=== PATIENT | female | born 1995 | race Two or more races ===

== ENCOUNTER 2017-03-23 14:27 | Emergency (ER) | payer SELFPAY ==
[2017-03-23 14:35] VITALS: BP 123/75
--- NOTE | 2017-03-23 15:28 | ER Document Report ---
HPI - HPI Patient complains to provider of: Foreign body in vagina Pain Level: Denies Context: Patient is a 21-year-old female presents emergency department with concerns that she has a tampon stuck in her vagina. Patient states that she believes she placed one at 7 AM this morning and has been able to get out all day. She states that she cannot feel it when she tries to find the string. Denies any pain, foreign body sensation, discharge, fever - DERM Skin Color: Normal Past Medical History - Social History Smoking Status: Unknown if Ever Smoked Family History: Reviewed & Not Pertinent Patient has suicidal ideation: No Patient has homicidal ideation: No Renal/ Medical History: Denies: Hx Peritoneal Dialysis Vertical Provider Document - CONSTITUTIONAL Agree With Documented VS: Yes Exam Limitations: No Limitations General Appearance: WD/WN, No Apparent Distress - INFECTION CONTROL TRAVEL OUTSIDE OF THE [place] IN LAST 30 DAYS: No - RESPIRATORY O2 Sat by Pulse Oximetry: 99 - GI/ABDOMEN Gastrointestinal: Abdomen Soft, Abdomen Non-Tender - REPRODUCTIVE Notes: FEMALE : Normal external exam. No evidence of lesions, lacerations, bruising or vesicles. Speculum exam normal cervix closed with minimal blood. No evidence of vaginal discharge with odor. No evidence of lesions. No vaginal bleeding. Bimanual exam normal no cervical motion tenderness. No adnexal mass or adnexal tenderness. No evidence of foreign body - NEURO Level of Consciousness: Awake, Alert, Appropriate Motor/Sensory: No Motor Deficit, No Sensory Deficit Course - Re-evaluation Re-evalutation: 03/23/17 17:40 Patient a 21-year-old female who is hemodynamic stable, no acute distress afebrile. No evidence of foreign body noted on physical exam. Patient stable for discharge home - Vital Signs Vital signs: Temp Pulse Resp BP Pulse Ox 97.7 F 73 16 123/75 99 03/23/17 14:34 03/23/17 14:34 03/23/17 14:34 03/23/17 14:34 03/23/17 14:34 Discharge - Discharge Clinical Impression: Foreign body in vagina Condition: Good Disposition: HOME, SELF-CARE Additional Instructions: There was no evidence of foreign body noted today Please return if you develop pain, fever/chills
== END 2017-03-23 15:58 | disposition home or self-care (01) ==
LOC: ER 14:27
DX: T19.2XXA Foreign body in vulva and vagina, initial encounter (principal); X58.XXXA Exposure to other specified factors, initial encounter
CPT/HCPCS: 99283